=== PATIENT | female | born 1990 | race Caucasian/White ===

== ENCOUNTER 2020-02-16 14:15 | Inpatient (IN) | payer OTHER ==
[~2020-02-16] VITALS: Ht 154.9 cm; Wt 74.4 kg
== END 2020-03-09 17:04 | disposition home or self-care (01) | DRG 807 ==
LOC: LDR 03-08 05:36 → SURH 03-09 14:15 → LDR 03-09 17:04
PROVIDERS: ADMIT Obstetrics & Gynecology; ATTEND Obstetrics & Gynecology
PROC: 10E0XZZ Delivery of Products of Conception, External Approach (ICD-10-PCS; principal; 2020-03-08)
PROC: 3E033VJ Introduction of Other Hormone into Peripheral Vein, Percutaneous Approach (ICD-10-PCS; 2020-03-08)
PROC: 10907ZC Drainage of Amniotic Fluid, Therapeutic from Products of Conception, Via Natural or Artificial Opening (ICD-10-PCS; 2020-03-08)
PROC: 4A1HXFZ Monitoring of Products of Conception, Cardiac Rhythm, External Approach (ICD-10-PCS; 2020-03-08)
DX: O80 Encounter for full-term uncomplicated delivery (principal); Z37.0 Single live birth; Z3A.39 39 weeks gestation of pregnancy; Z20.828 Contact with and (suspected) exposure to other viral communicable diseases

== ENCOUNTER 2020-03-01 09:42 | Outpatient (CLI) | payer OTHER | END 2020-03-01 10:35 | disposition home or self-care (01) | LOC: NST 09:42 | PROVIDERS: ATTEND Obstetrics & Gynecology Maternal & Fetal Medicine | DX: Z34.83 Encounter for supervision of other normal pregnancy, third trimester (principal) ==

== ENCOUNTER 2020-03-06 10:37 | Outpatient (CLI) | payer OTHER | END 2020-03-06 11:56 | disposition home or self-care (01) | LOC: NST 10:37 | PROVIDERS: ATTEND Obstetrics & Gynecology | DX: Z34.83 Encounter for supervision of other normal pregnancy, third trimester (principal) ==

== ENCOUNTER 2023-03-04 08:12 | Day surgery (SDC) | payer OTHER ==
[2023-03-03 14:09] LABS: HEMATOCRIT 37.2 % (36.0-45.00); HEMOGLOBIN 12.6 g/dL (12.0-15.00); MEAN CELL VOLUME 88.1 fL (80.00-100.00); MEAN CORPUSCULAR HEMOGLOBIN 29.8 pg (27.00-32.0); MEAN CORPUSCULAR HGB CONC 33.8 g/dl (32.0-36.0); PLATELET COUNT 310 K/uL (150-450); RED BLOOD COUNT 4.22 M/uL (4.00-6.00); RED CELL DISTRIBUTION WIDTH 13.1 % (11.5-14.5)
[2023-03-03 14:29] LABS: ALBUMIN 4.1 gm/dL (3.4-5.0); BILIRUBIN TOTAL 0.47 mg/dL (0.3-1.2); CALCIUM 9.6 mg/dL (8.5-10.1); CREATININE SERUM 0.62 mg/dL (0.55-1.02); GFR 110.19; GLOBULINA 3.6 G/DL (2.4-3.5); POTASSIUM 4.29 mEq/L (3.5-5.1); TOTAL PROTEIN 7.7 gm/dL (6.4-8.2)
[2023-03-03 14:37] LABS: INR 0.99; PARTIAL THROMBOPLASTIN TIME 27.9 SECONDS (22.0-34.0); PROTHROMBIN TIME 10.4 SECONDS (9.0-11.5)
[~2023-03-04 08:12] MED LIST: IRON325 MG PO; PRENATAL TABLE1 EAC1 PO
== END 2023-03-04 17:25 | disposition home or self-care (01) ==
LOC: CIR.AMB 08:12
PROVIDERS: ATTEND Obstetrics & Gynecology
DX: O02.1 Missed abortion (principal); O72.2 Delayed and secondary postpartum hemorrhage; Z20.822 Contact with and (suspected) exposure to COVID-19

== ENCOUNTER 2023-12-03 12:59 | Day surgery (SDC) | payer OTHER ==
[2023-12-01 11:05] LABS: HEMATOCRIT 38.1 % (36.0-45.00); HEMOGLOBIN 13.1 g/dL (12.0-15.00); MEAN CELL VOLUME 87.1 fL (80.00-100.00); MEAN CORPUSCULAR HGB CONC 34.4 g/dl (32.0-36.0); PLATELET COUNT 287 K/uL (150-450); RED BLOOD COUNT 4.37 M/uL (4.00-6.00); RED CELL DISTRIBUTION WIDTH 12.2 % (11.5-14.5)
[2023-12-01 11:21] LABS: INR 1.03; PARTIAL THROMBOPLASTIN TIME 30.7 SECONDS (22.0-34.0); PROTHROMBIN TIME 10.8 SECONDS (9.0-11.5)
[2023-12-01 12:07] LABS: ALBUMIN 4.2 gm/dL (3.4-5.0); BILIRUBIN TOTAL 0.4 mg/dL (0.3-1.2); CALCIUM 9.5 mg/dL (8.5-10.1); CREATININE SERUM 0.54 mg/dL (0.55-1.02); GFR 128.47; GLOBULINA 3.6 G/DL (2.4-3.5); POTASSIUM 3.97 mEq/L (3.5-5.1); TOTAL PROTEIN 7.8 gm/dL (6.4-8.2)
[2023-12-01 13:01] LABS: RH POSITIVE
[2023-12-03] MEDS ORDERED: CEFAZOLIN SODIUM 1,000 MG VIAL ONE (17:32)
[2023-12-03] MEDS ORDERED: POVIDONE-IODINE 118 ML BOTT TOP ONE ×2 (17:41→19:30)
[2023-12-03] MEDS ORDERED: MORPHINE SULFATE 4 MG/ML VIAL IV PRN (17:45)
[2023-12-03] MEDS ORDERED: PROMETHAZINE HCL 50 MG/ML AMPUL IM ONE (17:45)
[2023-12-03] MEDS ORDERED: METHYLERGONOVINE MALEATE 0.2 MG/ML AMPUL ONE (18:32)
[2023-12-03] MEDS ORDERED: METHYLERGONOVINE MALEATE 0.2 MG/ML AMPUL IV ONE (19:30)
[2023-12-03] MEDS ORDERED: CEFAZOLIN SODIUM 1,000 MG VIAL IV ONE (19:30)
== END 2023-12-03 20:20 | disposition home or self-care (01) ==
LOC: CIR.AMB 12:59
PROVIDERS: ATTEND Obstetrics & Gynecology
DX: O02.1 Missed abortion (principal)